=== PATIENT | male | born 1950 | race Two or more races ===

== ENCOUNTER 2019-01-07 16:02 | Emergency (ER) | payer MEDICARE, OTHER ==
[~2019-01-07] VITALS: Ht 170.2 cm; Wt 76.7 kg
[2019-01-07 16:24] VITALS: BP 124/72
[2019-01-07] MEDS ORDERED: IBUPROFEN 600 MG TABLET PO ONE ×2 (17:15→17:30)
== END 2019-01-07 18:57 | disposition home or self-care (01) ==
LOC: ER 16:04
DX: M54.5 Low back pain (principal); G89.29 Other chronic pain; E11.9 Type 2 diabetes mellitus without complications; Z60.2 Problems related to living alone; V79.59XA Passenger on bus injured in collision with other motor vehicles in traffic accident, initial encounter; Y93.89 Activity, other specified; Y92.488 Other paved roadways as the place of occurrence of the external cause; Y99.8 Other external cause status
CPT/HCPCS: 72110-TC